=== PATIENT | male | born 1960 | race Caucasian/White ===

== ENCOUNTER 2018-05-29 21:06 | Emergency (ER) | payer MEDICAID ==
[~2018-05-29] VITALS: Ht 167.6 cm; Wt 77.1 kg
[2018-05-29 21:20] VITALS: BP_SYST 136
[2018-05-29 22:06] VITALS: BP_SYST 129
== END 2018-05-29 22:06 | disposition home or self-care (01) ==
LOC: SED 21:06
DX: K04.7 Periapical abscess without sinus (principal); R03.0 Elevated blood-pressure reading, without diagnosis of hypertension
CPT/HCPCS: 99283